=== PATIENT | male | born 1955 | race Caucasian/White ===

== ENCOUNTER 2019-10-18 10:07 | Emergency (ER) | payer BC, SELFPAY ==
[2019-10-18 10:14] VITALS: BP 137/69; PULSE 97; RESP 20; TEMP 36.9; O2SAT 97
--- NOTE | 2019-10-18 10:28 | ED.GENADULT ---
HPI - General Adult General Chief complaint: Extremity Injury, Lower Stated complaint: Foot Gout Time Seen by Provider: 10/18/19 10:28 Source: patient and RN notes reviewed Mode of arrival: ambulatory Limitations: no limitations History of Present Illness HPI narrative: 64-year-old male presents with complaints of right lateral ankle pain and swelling for 1 day. Took 2 pills left over from a past gout attack with some relief. Denies injury. Denies foot pain and swelling. History of Gout. Andrea says symptoms increased over the last 24 hours with increase of pain after eating dinner which consisted of roast beef, mashed potatoes, and gravy. Denies history of CHF, DVT, or PE. Hurts to bear weight. No radiating pain. No numbness, tingling, or loss of mobility. Exacerbating factor applying weight. Denies inability to bear weight. Denies drainage, discoloration, or suspect foreign body. Denies fever or chills. Denies chest pain and shortness of breath. Denies fever, chills, headaches, weakness, fatigue, myalgia. Denies cough, rhinorrhea, congestion, sore throat, nausea, vomiting, abdominal pain, and diarrhea. Tolerating po intake well. Denies recent traveling. Denies concern for COVID-19 or exposures been home since [id number] order except for essential household needs, work, and returned home. Remains active. Some parts of this dictation were generated by voice recognition software and may contain typographical and/or grammatical inaccuracies. Related Data Allergies Allergy/AdvReac Type Severity Reaction Status Date / Time No Known Allergies Allergy Verified 10/18/19 10:26 Review of Systems Review of Systems: Narrative: CONSTITUTIONAL: Denies fever, chills, sweats. EYES: Denies visual changes, redness, discharge. ENT: Denies rhinorrhea, congestion, sore throat, otalgia. CARDIOVASCULAR: Denies chest pain, palpitations, edema. RESPIRATORY: Denies dyspnea, wheezing, cough. GASTROINTESTINAL: Denies abdominal pain, nausea, vomiting, diarrhea. GENITOURINARY: Denies dysuria, hematuria, abnormal discharge. SKIN: Denies rash or itching. MUSCULOSKELETAL: Denies acute back pain or myalgia. Complains of pain and swelling to RT lateral ankle. Denies drainage. NEUROLOGIC: Denies numbness or focal weakness. PSYCHIATRIC: Denies anxiety or depression. All systems reviewed & are unremarkable except as noted in HPI and below. [facility] Past Medical History Medical History (Updated 10/19/19 @ 00:00 by Gabby Cantor) Gout Nerve damage right arm and neck Surgical History Surgical History (Updated 10/18/19 @ 10:57 by SHRUTHI Perera) No significant past surgical history Family History Family History (Updated 10/18/19 @ 10:58 by SHRUTHI Perera) Father , NO History per [facility] prior to No problems noted. Mother , No history prior to per Andrea No problems noted. Sibling Alive and well Social History Social History (Updated 10/18/19 @ 10:59 by SHRUTHI Perera) Smoking packs per day: 1.5 Smoking cigarettes per day: 30.0 Years smoked: 45 Smoking pack-years: 67.50 Smoking status: Current every day smoker Tobacco type: cigarettes Second hand tobacco smoke exposure: No Alcohol intake: current Alcohol use details: Occasional Living arrangements: alone Occupation/Education: occupation Gender identity (if verbalized by the patient): Male Comments At time of signature, agree with nurse past medical, surgical, social, and family history. There is no relevant family history pertinent to the presenting complaint. Exam Narrative: Exam Narrative: GENERAL: This is a well-nourished, well-developed patient, in no apparent distress. Ambulates with a limp favoring right lower extremity due to tenderness in RT lateral ankle. HEAD: normocephalic, atraumatic. EYES: PERRL. Sclera clear/white. Vision is grossly intact. CARDIOVASCULAR
== END 2019-10-18 10:51 | disposition home or self-care (01) ==
PROVIDERS: Emergency Provider Nurse Practitioner Family
DX: M10.9 Gout, unspecified (principal); F17.210 Nicotine dependence, cigarettes, uncomplicated; R03.0 Elevated blood-pressure reading, without diagnosis of hypertension
CPT/HCPCS: 99213; G0463